=== PATIENT | male | born 1960 ===

== ENCOUNTER 2020-12-21 13:23 | Observation (INO) ==
[2020-12-21 13:52] LABS: ABS Eosinophils 0.1 10^3/ul (0-0.6); ABS Lymphocytes 1.4 10^3/ul (1.0-4.8); ABS Monocytes 0.4 10^3/ul (0-0.8); ABS Neutrophils 3.2 10^3/ul (1.5-7.7); Eosinophil % 1.1 %; Hematocrit 41 % (42-52); Hemoglobin 13.7 g/dL (14.0-18.0); Lymphocyte % 27.2 %; Mean Corpuscular HGB Conc 34 g/dL (31-36); Mean Corpuscular Hemoglobin 31 pg (27-31); Mean Corpuscular Volume 92 fL (80-94); Mean Platelet Volume 7.7 fL (7.4-10.4); Nucleated Red Blood Cells % 0.1; Platelet Count 179 10^3/uL (150-450); Red Blood Count 4.41 10^6 /uL (4.18-5.48); Red Cell Distribution Width 13 % (10-15)
[2020-12-21 14:11] LABS: Albumin 4.3 g/dL (3.2-5.2); Albumin/Globulin Ratio 1.4 (1-3); Calcium 9.6 mg/dL (8.6-10.3); Globulin 3.1 g/dL (2-4); Potassium 4.4 mmol/L (3.5-5.0); Total Bilirubin 0.5 mg/dL (0.2-1.0); Total Protein 7.4 g/dL (6.4-8.9)
[2020-12-21 18:14] LABS: Rapid COVID-19 Molecular Undetected (Undetected)
[2020-12-21 22:22] LABS: Cholesterol 177 mg/dL; HDL Cholesterol 64.8 mg/dL; LDL Cholesterol 96 mg/dL; Triglycerides 82 mg/dL
[2020-12-21 22:24] LABS: Troponin I 0.01 ng/mL (<0.03)
[2020-12-21 22:51] LABS: % Iron Saturation 28 % (15-55); Iron 84 ug/dL (50-212); Total Iron Binding Capacity 297 mcg/dL (250-450); Transferrin 212 mg/dL (203-362); Unsaturated Iron Binding < 282 ug/dL
[2020-12-21 23:11] LABS: Ferritin 171.5 ng/mL (24-336)
[2020-12-22 11:42] VITALS: BP 120/66
== END 2020-12-22 15:45 | disposition home or self-care (01) ==
LOC: ED 13:23 → MEDTELE 13:23
PROVIDERS: ADMIT Student in an Organized Health Care Education/Training Program; ATTEND Student in an Organized Health Care Education/Training Program